=== PATIENT | female | born 1955 | race Two or more races ===

== ENCOUNTER 2016-08-27 10:41 | Day surgery (SDC) | payer OTHER ==
[2016-08-27 11:37] VITALS: BMI 40.0
[2016-08-27] MEDS ORDERED: LIDOCAINE HCL/PF 2% SDV 5ML VIAL ONE (11:54)
[2016-08-27 12:51] VITALS: TEMP 98.2
[2016-08-27 13:48] VITALS: BP 129/69; PULSE 68
--- NOTE | 2016-08-30 10:49 | PATH ---
Surgical Pathology Report Patient Name: ANDREI BARTHOLOMEW [facility]. Rec. #: [id number] /Age/Gender: 1955 (Age: 60) / F Account: [id number] Location: [facility]-ENDOSCOPY Taken: 08/27/2016 Received: 08/27/2016 Reported: 08/30/2016 Physicians: Hira Castro M.D. Specimen(s) Received A: BX CECAL POLYP B: BX TRANSVERSE COLON POLYP Clinical History Persistent heart burn, screening colonoscopy Hiatal hernia, colon polyps Final Diagnosis A. COLON, CECUM, BIOPSY: TUBULAR ADENOMA. B. COLON, TRANSVERSE, BIOPSY: HYPERPLASTIC POLYP. Electronically Signed Alf Paz M.D. Gross Description A. Received in formalin, labeled "biopsy cecal polyp" is a zamora, irregular portion of soft tissue measuring 0.5 cm. in greatest dimension. The specimen is submitted in toto in one cassette. B. Received in formalin, labeled "biopsy transverse colon polyp" is a zamora, irregular portion of soft tissue measuring 0.5 cm. in greatest dimension. The specimen is submitted in toto in one cassette. 08/27/2016 saudi08/27/2016
== END 2016-08-27 14:10 | disposition home or self-care (01) ==
LOC: JASU-ENDO 10:41
PROVIDERS: ATTEND Internal Medicine Gastroenterology
PROC: 0DBL8ZX Excision of Transverse Colon, Via Natural or Artificial Opening Endoscopic, Diagnostic (ICD-10-PCS; 2016-08-27)
PROC: 0DJ08ZZ Inspection of Upper Intestinal Tract, Via Natural or Artificial Opening Endoscopic (ICD-10-PCS; 2016-08-27)
PROC: 0DBH8ZX Excision of Cecum, Via Natural or Artificial Opening Endoscopic, Diagnostic (ICD-10-PCS; principal; 2016-08-27 12:30)
DX: Z12.11 Encounter for screening for malignant neoplasm of colon (principal); D12.0 Benign neoplasm of cecum; D12.3 Benign neoplasm of transverse colon; K64.8 Other hemorrhoids; R12 Heartburn; K44.9 Diaphragmatic hernia without obstruction or gangrene
CPT/HCPCS: 88305-TC

== ENCOUNTER 2017-09-06 10:12 | Day surgery (SDC) | payer OTHER ==
[2017-09-05 10:31] VITALS: BMI 40.0
[2017-09-06 10:48] VITALS: TEMP 97.8
[2017-09-06 18:10] VITALS: BP 135/72; PULSE 66
== END 2017-09-06 16:15 | disposition home or self-care (01) ==
LOC: JASU-SURG 10:12
PROVIDERS: ATTEND Urology
PROC: 0TF4XZZ Fragmentation in Left Kidney Pelvis, External Approach (ICD-10-PCS; principal; 2017-09-06)
DX: N20.0 Calculus of kidney (principal)

== ENCOUNTER 2021-01-07 14:44 | Emergency (ER) | payer OTHER ==
[2021-01-07 14:49] VITALS: BP 154/97; PULSE 77; TEMP 98; BMI 40.0
[2021-01-07] MEDS ORDERED: KETOROLAC TROMETHAMINE 30 MG/1 ML VIAL IM ONE (16:02)
[2021-01-07] MEDS ORDERED: ACETAMINOPHEN 500 MG TABLET (FP) PO ONE (16:03)
[2021-01-07] MEDS ORDERED: ACETAMINOPHEN 325 MG TABLET (FP) ONE (16:50)
[2021-01-07] MEDS ORDERED: KETOROLAC TROMETHAMINE 30 MG/1 ML VIAL ONE (16:50)
== END 2021-01-07 17:36 | disposition home or self-care (01) ==
LOC: JERFT 14:44
PROC: 3E0233Z Introduction of Anti-inflammatory into Muscle, Percutaneous Approach (ICD-10-PCS; principal; 2021-01-07)
DX: M25.561 Pain in right knee (principal)
CPT/HCPCS: 93971-TC; 99284-25